=== PATIENT | female | born 1990 | race Asian ===

== ENCOUNTER 2021-02-23 13:28 | Emergency (ER) | payer OTHER ==
[~2021-02-23] VITALS: Ht 152.4 cm; Wt 106.1 kg
[2021-02-23 14:40] VITALS: BP 158/94; TEMP 98.8
== END 2021-02-23 15:31 | disposition home or self-care (01) ==
LOC: ED 13:28
DX: S93.492A Sprain of other ligament of left ankle, initial encounter (principal); X50.1XXA Overexertion from prolonged static or awkward postures, initial encounter; Y93.F9 Activity, other caregiving; Y92.128 Other place in nursing home as the place of occurrence of the external cause
CPT/HCPCS: 99283